=== PATIENT | female | born 1975 | race Caucasian/White ===

== ENCOUNTER 2017-04-23 11:54 | Emergency (ER) | payer MEDICAID ==
[~2017-04-23] VITALS: Ht 160 cm; Wt 80.0 kg
[~2017-04-23 11:54] MED LIST: DOCU-144 PO; NITR-58 PO; PHEN-537 PO
[2017-04-23 12:11] VITALS: Ht 160 cm; Wt 80.0 kg
[2017-04-23] MEDS ORDERED: predniSONE 20 MG TAB PO STA (13:52)
[2017-04-23] MEDS: IPRATROPIUM (NEB) 0.5 MG/2.5 ML AMP NEB STA ×2 (13:55→13:59)
[2017-04-23] MEDS: ALBUTEROL 0.083% (NEB) 2.5 MG/3 ML AMP NEB STA ×2 (13:55→13:59)
[2017-04-23] MEDS ORDERED: HYDROCODONE/APAP (5/325) TAB PO ONE (14:00)
[2017-04-23 14:08] LABS: URINE BLOOD (Dip) POC 2+ (NEGATIVE)
--- NOTE | 2017-04-23 15:08 | RADRPT ---
PROCEDURE: XR Chest. CLINICAL INDICATION: Wheezing and shortness of breath. TECHNIQUE: Single frontal view. COMPARISON: None. FINDINGS: The lungs are clear. The heart size is normal. There is no pleural effusion. There is no pneumothorax. IMPRESSION: 1. Normal chest radiograph. RPTAT: QQ .Tone Alarcon MD, MD Date Time Electronically viewed and signed by .Tone Alarcon MD, on 04/23/2017 15:08 .R/
--- NOTE | 2017-04-23 15:15 | ERD ---
ER Documentation Chief Complaint Date/Time DATE: 04/23/17 TIME: 15:14 Chief Complaint pt bib self with c/o headache feeling sob and cough HPI This is a 41-year-old male who presents the emergency department today complaining of headache, cough and feeling shortness of breath for the past 5 days. States she has not taken any medication. Denies any fevers or chills. Denies any dizziness, nausea vomiting, blurred vision. ROS All systems reviewed and are negative except as per history of present illness. Medications Home Meds Active Scripts Prednisone* (Prednisone*) 20 Mg Tab, 40 MG PO DAILY for 4 Days, TAB Prov:CAM FONTAINE PA-C 04/23/17 Azithromycin* (Zithromax*) 250 Mg Tablet, 250 MG PO .ZPACK DIRECTED, #6 TAB TAKE 500 MG (2 TABS) THE FIRST DAY THEN 250 MG (1 TAB) DAYS 2-5 Prov:CAM FONTAINE PA-C 04/23/17 Albuterol Sulfate* (Proair HFA*) 8.5 Gm Hfa.aer.ad, 2 PUFF INH Q4, #1 INHALER Prov:CAM FONTAINE PA-C 04/23/17 Naproxen* (Naprosyn*) 500 Mg Tablet, 500 MG PO BID Y for PAIN AND/OR INFLAMMATION, #30 TAB Prov:CAM FONTAINE PA-C 04/23/17 Docusate Sodium* (Colace*) 100 Mg Capsule, 100 MG PO TID for 10 Days, #30 CAP 0 Refills Prov:PETER CASTRO PA-C 04/17/16 Phenazopyridine Hcl* (Pyridium*) 100 Mg Tab, 100 MG PO TID Y for URINARY PAIN for 3 Days, #9 TAB 0 Refills Prov:PETER CASTRO PA-C 04/17/16 Nitrofurantoin Monohyd Macrocr* (Macrobid*) 100 Mg Capsr, 100 MG PO BID for 7 Days, #14 CAP 0 Refills Prov:PETER CASTRO PA-C 04/17/16 Allergies Allergies: Coded Allergies: No Known Allergy (Unverified , 04/23/17) PMhx/Soc History of Surgery: No Anesthesia Reaction: No Hx Neurological Disorder: No Hx Respiratory Disorders: Yes (asthma ) Hx Cardiac Disorders: No Hx Psychiatric Problems: No Hx Miscellaneous Medical Probl: No Hx Alcohol Use: No Hx Substance Use: No Hx Tobacco Use: No Smoking Status: Never smoker Physical Exam Vitals Vital Signs Date Time Temp Pulse Resp B/P Pulse Ox O2 Delivery O2 Flow Rate FiO2 04/23/17 15:29 98.6 75 18 104/59 98 Room Air 04/23/17 14:00 76 20 97 21 04/23/17 12:11 98.6 75 18 120/63 97 Physical Exam Const: NAD Head: Atraumatic Eyes: Normal Conjunctiva ENT: Ears TM normal, no drainage. Throat no erythema no exudate Neck: Full range of motion..~ No meningismus. Resp: Diffuse wheezing bilaterally in all lung barkley Cardio: Regular rate and rhythm, no murmurs Abd: Soft, non tender, non distended. Normal bowel sounds Skin: No petechiae or rashes Neur: Awake and alert Psych: Normal Mood and Affect Results 24 hrs Laboratory Tests Test 04/23/17 14:15 Bedside Urine pH (LAB) 7.0 Bedside Urine Protein (LAB) Negative Bedside Urine Glucose (UA) Negative Bedside Urine Ketones (LAB) Negative Bedside Urine Blood 2+ Bedside Urine Nitrite (LAB) Negative Bedside Urine Leukocyte Esterase (L Trace Current Medications Medications (Trade) Dose Ordered Sig/Noemi Route PRN Reason Start Time Stop Time Status Last Admin Dose Admin Albuterol (Proventil 0.083% (Neb)) 5 mg ONCE STAT NEB 04/23/17 13:52 04/23/17 13:55 DC 04/23/17 13:59 Ipratropium Thurston (Atrovent 0.02% (Neb)) 0.5 mg ONCE STAT NEB 04/23/17 13:52 04/23/17 13:55 DC 04/23/17 13:59 Prednisone (Prednisone) 60 mg ONCE STAT PO 04/23/17 13:52 04/23/17 13:55 DC 04/23/17 13:59 Acetaminophen/ Hydrocodone Bitart ([place] (5/325)) 1 tab ONCE ONCE PO 04/23/17 14:00 04/23/17 14:01 DC 04/23/17 13:58 DIAGNOSTIC IMAGING REPORT Patient: MINOR SORENESN : 1975 Age: 41 Sex: F MR #: [id number] DOS: 04/23/17 1352 Ordering MD: CAM FONTAINE PA-C Location: [facility] Room/Bed: PROCEDURE: XR Chest. CLINICAL INDICATION: Wheezing and shortness of breath. TECHNIQUE: Single frontal view. COMPARISON: None. FINDINGS: The lungs are clear. The heart size is normal. There is no pleural effusion. There is no pneumothorax. IMPRESSION: 1. Normal chest radiograph. RPTAT: QQ .Toen Alarcon MD, MD Date Time Electronically viewed and signed by .Tone Alarcon MD, on 04/23/2017 15:08 .R/ CC: CAM FONTAINE PA-C Procedures/MDM This is a 41-year-old female who presents the emergency department today complaining of headache and cough and shortness of breath for the past 5 days. On physical exam patient had diffuse wheezing in all lung barkley. Patient denied any history of asthma. Given this I did give patient a breathing treatment and steroid and obtain a chest x-ray. I also obtain a UA as patient had complained of a headache. Patient denied any visual complaints and her headache appeared to be more in the frontal aspect and I do not feel that she requires a head CT scan at this time. Low suspicion for acute hemorrhage, mass , abscess, meningitis. UA shows trace leukocyte esterase and 2+ hematuria. Chest x-ray is negative. There is no pleural effusion, pneumothorax. No evidence of consolidation. Low suspicion for pneumonia, PE, abscess, pleural effusion. Symptoms at this time is consistent with cough headache. Given patient's diffuse wheezing on physical exam I will treat the patient for bronchitis. Patient was given B[place]mer here in the emergency department and headache improved. Patient wheezing improved significantly after breathing treatment. she will be given a prescription for Naprosyn, ProAir air, prednisone, azithromycin to treat possible bronchitis. At this time the patient is stable for discharge and outpatient management. Patient should follow up with their PCP in the next 1-2 days. They may return to the emergency department sooner for any persistent or worsening of symptoms. Patient understood and agreed with the plan. Departure Diagnosis: Primary Impression: Headache Headache type: unspecified Headache chronicity pattern: episodic headache Intractability: not intractable Qualified Code: R51 - Nonintractable episodic headache, unspecified headache type Additional Impression: Cough Condition: Fair CAM FONTAINE PA-C Apr 23, 2017 15:15
[2017-04-23] MEDS ORDERED: AZIT250T94 PO (15:18)
[2017-04-23] MEDS ORDERED: ALBU8.5H3 INH (15:18)
[2017-04-23] MEDS ORDERED: NAPR-260 PO (15:18)
[2017-04-23] MEDS ORDERED: PRED20TA PO (15:19)
[2017-04-23 15:29] VITALS: BP 104/59; PULSE 75; RESP 18; TEMP 98.6
== END 2017-04-23 15:31 | disposition home or self-care (01) ==
LOC: FTE 11:54
DX: R51 Headache (principal); R05 Cough
CPT/HCPCS: 71010; 81003; 94664; J7512; Z7502; Z7610

== ENCOUNTER 2018-03-25 15:24 | Emergency (ER) | END 2018-03-25 18:58 | disposition home or self-care (01) ==

== ENCOUNTER 2018-09-12 15:58 | Emergency (ER) | payer MEDICAID ==
[~2018-09-12] VITALS: Ht 160 cm; Wt 81.6 kg
[~2018-09-12 15:58] MED LIST changes: +ALBU8.5H8 INH; +AZIT250T PO; +CYCL10TA7 PO; +NAPR-985 PO; +PRED20TA PO
[2018-09-12 16:03] VITALS: BP 121/56; PULSE 88; RESP 23; Ht 160 cm; Wt 81.6 kg
--- NOTE | 2018-09-12 20:33 | ERD ---
ER Documentation Chief Complaint Chief Complaint COUGH X 8 DAYS HPI 42-year-old female, previously healthy, presents the emergency department, complaining of progressive worsening of cough and wheezing, the the cough is described as dry, constant, worse at night, associated with subjective fever, chills and general malaise. The patient has been taking [id number] medications without improvement of the symptoms. ROS All systems reviewed and are negative except as per history of present illness. Medications Home Meds Active Scripts Ibuprofen* (Motrin*) 600 Mg Tab, 600 MG PO Q8, #15 TAB Prov:KHALIDA SAMUELS MD 09/12/18 Inhaler, Assist Devices (Compact Space Chamber Plus) 1 Each Spacer, EACH MC Q4H WHILE AWAKE PRN for COUGH, #1 Prov:KHALIDA SAMUELS MD 09/12/18 Albuterol Sulfate* (Proair HFA*) 8.5 Gm Hfa.aer.ad, 2 PUFF INH Q4H PRN for WHEEZING AND SOB, #1 INHALER Prov:KHALIDA SAMUELS MD 09/12/18 Prednisone* (Prednisone*) 20 Mg Tab, 40 MG PO DAILY for 4 Days, TAB Prov:KHALIDA SAMUELS MD 09/12/18 Azithromycin* (Zithromax*) 250 Mg Tablet, 250 MG PO .MaritzaPACARIDAD DIRECTED, #6 TAB TAKE 500 MG (2 TABS) THE FIRST DAY THEN 250 MG (1 TAB) DAYS 2-5 Prov:KHALIDA SAMUELS MD 09/12/18 Naproxen* (Naprosyn*) 500 Mg Tablet, 500 MG PO BID PRN for PAIN AND/OR INFLA MMATION, #30 TAB Prov:KENNEDI ARMSTRONG PA-C 03/25/18 Cyclobenzaprine Hcl* (Cyclobenzaprine Hcl*) 10 Mg Tablet, 10 MG PO TID, #15 TAB Prov:KENNEDI ARMSTRONG PA-C 03/25/18 Prednisone* (Prednisone*) 20 Mg Tab, 40 MG PO DAILY for 4 Days, TAB Prov:CAM FONTAINE PA-C 04/23/17 Azithromycin* (Zithromax*) 250 Mg Tablet, 250 MG PO .MaritzaPACARIDAD DIRECTED, #6 TAB TAKE 500 MG (2 TABS) THE FIRST DAY THEN 250 MG (1 TAB) DAYS 2-5 Prov:ALEXIS FONTAINEROSA MARIA Chavez PA-C 04/23/17 Albuterol Sulfate* (Proair HFA*) 8.5 Gm Hfa.aer.ad, 2 PUFF INH Q4, #1 INHALER Prov:OSWALDOALEXISCAMROSA MARIA Chavez PA-C 04/23/17 Naproxen* (Naprosyn*) 500 Mg Tablet, 500 MG PO BID PRN for PAIN AND/OR INFLAM MATION, #30 TAB Prov:OSWALDOCAM Chavez PA-C 04/23/17 Docusate Sodium* (Colace*) 100 Mg Capsule, 100 MG PO TID for 10 Days, #30 CAP 0 Refills Prov:PETER CASTRO PA-C 04/17/16 Phenazopyridine Hcl* (Pyridium*) 100 Mg Tab, 100 MG PO TID PRN for URINARY PAIN for 3 Days, #9 TAB 0 Refills Prov:PETER CASTRO PA-C 04/17/16 Nitrofurantoin Monohyd Macrocr* (Macrobid*) 100 Mg Capsr, 100 MG PO BID for 7 Days, #14 CAP 0 Refills Prov:PETER CASTRO PA-C 04/17/16 Allergies Allergies: Coded Allergies: No Known Allergy (Unverified , 04/23/17) PMhx/Soc History of Surgery: No Anesthesia Reaction: No Hx Neurological Disorder: No Hx Respiratory Disorders: Yes (asthma ) Hx Cardiac Disorders: No Hx Psychiatric Problems: No Hx Miscellaneous Medical Probl: No Hx Alcohol Use: No Hx Substance Use: No Hx Tobacco Use: No FmHx Family History: No diabetes, No coronary disease Physical Exam Vitals Vital Signs Date Temp Pulse Resp B/P (MAP) Pulse Ox O2 O2 Flow FiO2 Time Delivery Rate 09/12/18 81 18 99 21 21:02 09/12/18 97.9 88 23 121/56 95 16:03 (77) Physical Exam Const: No acute distress Head: Atraumatic Eyes: Normal Conjunctiva ENT: Normal External Ears, Nose and Mouth. Neck: Full range of motion. No meningismus. Resp: Rhonchi and wheezing to auscultation bilaterally Cardio: Regular rate and rhythm, no murmurs Abd: Soft, non tender, non distended. Normal bowel sounds Skin: No petechiae or rashes Back: No midline or flank tenderness Ext: No cyanosis, or edema Neur: Awake and alert Psych: Normal Mood and Affect Results 24 hrs Current Medications Medications Dose Sig/Noemi Start Time Status Last (Trade) Ordered Route PRN Stop Time Admin Dose Reason Admin Albuterol 5 mg ONCE STAT 09/12/18 DC 09/12/18 (Proventil HHN 20:40 21:02 0.083% (Neb)) 09/12/18 20:49 10 mg ONCE STAT 09/12/18 DC 09/12/18 Dexamethasone PO 20:40 21:03 (Decadron 09/12/18 20:49 Intensol Liquid) Ipratropium 0.5 mg ONCE ONCE 09/12/18 DC 09/12/18 [place] HHN 21:00 21:02 (Atrovent 09/12/18 21:01 0.02% (Neb)) 650 mg ONCE ONCE 09/12/18 DC 09/12/18 Acetaminophen PO 22:00 22:18 (Tylenol 09/12/18 22:08 Tab) Ibuprofen 400 mg ONCE ONCE 09/12/18 DC 09/12/18 (Motrin) PO 22:00 22:18 09/12/18 22:08 Procedures/MDM At the time of discharge, vital signs stable, no respiratory distress. Differential diagnosis include but not limited to: Respiratory infection bacterial/viral/fungal. Influenza, croup, bronchiolitis, pneumonitis, allergies, GERD. Less likely foreign body aspiration, cardiac related. Physical examination and clinical presentation consistent most likely with viral infection with early superimposed bacterial infection. During the ED course the patient remained stable, no new complaints. Treatment options and clinical impression discussed with patient who agrees with management. The patient is stable to be treated outpatient and will be discharged home. Some side effects of prescribed medications (headache, rash, nausea, vomiting, diarrhea, interactions with other medications) were reviewed. The patient needs to follow up with the primary care provider in the next 48h. If symptoms persist, worsen or new symptoms develop, then patient should return to the ED immediately. Disclaimer: Inadvertent spelling and grammatical errors are likely due to EHR/dictation software use and do not reflect on the overall quality of patient care. Also, please note that the electronic time recorded on this note does not necessarily reflect the actual time of the patient encounter. Departure Diagnosis: Primary Impression: Acute wheezy bronchitis Condition: Stable Additional Instructions: Muchas matt por [facility] para logan servicio. Esperamos que en logan visita a la yessica de emergencia logan problema medico haya sido solucionado y que se sienta mucho mejor. Para estar seguros que logan mejoria sigue en proceso, le pedimos el favor de hacer kaela vanessa de seguimiento medico con logan doctor primario en los proximos 2-4 rocha. Lleve con usted estos documentos y las medicinas recetadas. Si guy sintomas empeoran, NO SE ESPERE, por favor regrese a yessica de emergencia INMEDIATAMENTE. En peyton que usted no tenga un mdico de atencin primaria: Llame al mdico o clnica comunitaria de referencia que aparece abajo jaqueline las horas de consultorio para hacer kaela vanessa para que le vean. CLINICAS: [facility] [phone] [facility] [phone] [facility] [phone] [facility] [phone] [place] [id number] [phone] [place] [id number] [phone] [place] Sep 12, 2018 20:33
[2018-09-12] MEDS ORDERED: ALBUTEROL 0.083% (NEB) 2.5 MG/3 ML AMP HHN STA (20:40)
[2018-09-12] MEDS ORDERED: DEXAMETHASONE (1 MG/ML PO SYG) PO STA (20:40)
[2018-09-12] MEDS ORDERED: IPRATROPIUM (NEB) 0.5 MG/2.5 ML AMP HHN ONE (21:00)
[2018-09-12] MEDS ORDERED: ACETAMINOPHEN 325 MG TAB PO ONE (22:00)
[2018-09-12] MEDS ORDERED: IBUPROFEN 200 MG TAB PO ONE (22:00)
[2018-09-12] MEDS ORDERED: AZIT250T PO (22:03)
[2018-09-12] MEDS ORDERED: PRED20TA PO (22:03)
[2018-09-12] MEDS ORDERED: IBUP-1542 PO (22:03)
[2018-09-12] MEDS ORDERED: INHA1SPA95 MC (22:03)
[2018-09-12] MEDS ORDERED: ALBU8.5H8 INH (22:03)
== END 2018-09-12 22:27 | disposition home or self-care (01) ==
LOC: FTE 15:58
DX: J20.9 Acute bronchitis, unspecified (principal); J45.901 Unspecified asthma with (acute) exacerbation
CPT/HCPCS: 94664; Z7502; Z7610